=== PATIENT | male | born 1955 | race Caucasian/White ===

== ENCOUNTER 2017-11-10 11:31 | Day surgery (SDC) | payer BC ==
[~2017-11-10 11:31] MED LIST: Lactated Ringers 1,000 ML IV SCH; Lidocaine 2% 5 ML SDV ONE; Propofol 200 MG/20 ML SDV ONE
--- NOTE | 2017-11-10 12:17 | PCM.PREANE ---
Preanesthetic Assessment - Anesthesia/Transfusion/Family Hx Anesthesia History: Prior Anesthesia Without Reaction Family History of Anesthesia Reaction: No Transfusion History: No Prior Transfusion(s) Intubation History: Unknown - Review of Systems General: No Symptoms Pulmonary: No Symptoms Cardiovascular: No Symptoms Gastrointestinal: Abdominal Pain, Other (recurrent diverticulitis) Neurological: No Symptoms Other: Reports: None - Physical Assessment O2 Sat by Pulse Oximetry: 96 Respiratory Rate: 16 Vital Signs: Last Vital Signs Temp 37.4 C 11/10/17 11:49 Pulse 96 11/10/17 11:49 Resp 16 11/10/17 11:49 BP 123/74 11/10/17 11:49 Pulse Ox 96 11/10/17 11:49 Height: 1.85 m Weight: 102.058 kg ASA Class: 2 Mental Status: Alert & Oriented x3 Airway Class: Mallampati = 2 Dentition: Reports: Normal Dentition Thyro-Mental Finger Breadths: 3 Mouth Opening Finger Breadths: 3 ROM/Head Extension: Limited/Partial Lungs: Clear to Auscultation, Normal Respiratory Effort Cardiovascular: Regular Rate, Regular Rhythm - Allergies Allergies/Adverse Reactions: Allergies Allergy/AdvReac Type Severity Reaction Status Date / Time No Known Allergies Allergy Verified 11/05/17 09:01 - Blood Blood Available: No - Anesthesia Plan Pre-Op Medication Ordered: None - Acknowledgements Anesthesia Type Planned: MAC Pt an Appropriate Candidate for the Planned Anesthesia: Yes Alternatives and Risks of Anesthesia Discussed w Pt/Guardian: Yes Pt/Guardian Understands and Agrees with Anesthesia Plan: Yes PreAnesthesia Questionnaire Cardiovascular History: Reports: Other (See Below) Other Cardiovascular History: 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 Gastrointestinal History: Reports: Diverticulosis (repeat flares of diverticulitis), GERD Genitourinary History: Reports: None Musculoskeletal History: Reports: Arthritis, Fracture Other Musculoskeletal History: hx fx wrist, bulging discs between cercical vertabrae Neurological History: Reports: None Endocrine/Metabolic History: Reports: None Dermatologic History: Reports: Other (See Below) Other Dermatologic History: psoratic arthritis - Past Surgical History Head Surgeries/Procedures: Reports: None GI Surgical History: Reports: Colonoscopy ('02) Male Surgical History: Reports: Vasectomy Neurological Surgical History: Reports: C-Spine (x2 posterior and arterior fusion) Other Neurological Surgeries/Procedures: hx arthrodesis cervical Musculoskeletal Surgical History: Reports: Arthroscopic Knee, Carpal Tunnel Other Musculoskeletal Surgeries/Procedures:: hx knee surgery and foot surgery - SUBSTANCE USE Smoking Status *Q: Never Smoker Recreational Drug Use History: No - HOME MEDS Home Medications: Home Meds Clobetasol [Clobetasol Propionate 0.05%] 1 applic TOP ASDIRECTED PRN 11/05/17 [ History] Cyclobenzaprine HCl 10 mg PO ASDIRECTED PRN 11/05/17 [History] Omeprazole Magnesium [Prilosec Otc] 20 mg PO ASDIRECTED 11/05/17 [History] - CURRENT (IN HOUSE) MEDS Current Meds: Current Medications Lactated Ringer's (Ringers, Lactated) 1,000 mls @ 125 mls/hr IV ASDIRECTED LUIS FERNANDO Last Admin: 11/10/17 11:52 Dose: 125 mls/hr Discontinued Medications Lidocaine (Xylocaine-Mpf 2%) Confirm Administered Dose 5 ml .ROUTE .STK-MED ONE Stop: 11/10/17 07:24 Propofol (Diprivan 20 Ml) Confirm Administered Dose 400 mg .ROUTE .STK-MED ONE Stop: 11/10/17 07:24
[2017-11-10] MEDS ORDERED: Lactated Ringers 1,000 ML IV SCH (13:00)
--- NOTE | 2017-11-10 13:00 | PCM.OPNOTE ---
- General Post-Op/Procedure Note Date of Surgery/Procedure: 11/10/17 Operative Procedure(s): Colonoscopy Pre Op Diagnosis: Desire for colorectal cancer screening Post-Op Diagnosis: Sigmoid diverticulosis Anesthesia Technique: MAC (ASA II) Primary Surgeon: Willi Chavis Condition: Good Free Text/Narrative:: DICTATION [id number] CPT CODE 82725
--- NOTE | 2017-11-10 18:47 | OR ---
SURGEON: Willi Chavis M.D. DATE OF PROCEDURE: 11/10/2017 OPERATION PERFORMED: Colonoscopy. ANESTHESIA: MAC. ASA CLASSIFICATION: Two. PREOPERATIVE DIAGNOSIS: Desire for colorectal cancer screening. POSTOPERATIVE DIAGNOSIS: Sigmoid diverticulosis. DESCRIPTION OF PROCEDURE: The patient was taken to the endoscopy room, positioned on the endoscopy table in the left lateral decubitus position. Time-out was called for appropriate identification of the patient and procedure. Monitored anesthesia care was provided. The colonoscope was inserted into the rectum and advanced with minimal difficulty to the cecum where the colonoscope was retroflexed to visualize the ascending colon from below. The colonoscope was then straightened and slowly withdrawn. The cecum, ascending colon, hepatic flexure, transverse colon, splenic flexure, descending colon showed no tumors, polyps, diverticula, or angiodysplastic changes. Sigmoid colon demonstrates numerous diverticula that are quite wide-mouthed. No stricture, spasm, or bleeding was noted. The colonoscope was withdrawn to the rectum and retroflexed to visualize the anal orifice from above. Again no tumors or polyps were seen and there were no acute hemorrhoidal changes. The colonoscope was then straightened, the rectum aspirated, and the colonoscope removed. The patient tolerated the procedure well and was taken to recovery room in stable condition. JAIMEE / CEFERINO /[id number]
== END 2017-11-10 14:00 | disposition home or self-care (01) ==
LOC: MW.SDS 11:31
PROVIDERS: ATTEND Surgery
DX: Z12.11 Encounter for screening for malignant neoplasm of colon (principal); K57.30 Diverticulosis of large intestine without perforation or abscess without bleeding; I10 Essential (primary) hypertension; M19.90 Unspecified osteoarthritis, unspecified site; D69.3 Immune thrombocytopenic purpura; M50.30 Other cervical disc degeneration, unspecified cervical region; K57.92 Diverticulitis of intestine, part unspecified, without perforation or abscess without bleeding; N52.9 Male erectile dysfunction, unspecified; M25.361 Other instability, right knee; K21.9 Gastro-esophageal reflux disease without esophagitis; Z83.3 Family history of diabetes mellitus; I51.7 Cardiomegaly; L40.9 Psoriasis, unspecified; L40.50 Arthropathic psoriasis, unspecified; M75.101 Unspecified rotator cuff tear or rupture of right shoulder, not specified as traumatic; L81.4 Other melanin hyperpigmentation; Z79.899 Other long term (current) drug therapy; Z98.890 Other specified postprocedural states; Z98.52 Vasectomy status; Z82.61 Family history of arthritis; Z82.3 Family history of stroke; Z98.1 Arthrodesis status
CPT/HCPCS: 45378; J7120; J2704